=== PATIENT | female | born 1950 | race Caucasian/White ===

== ENCOUNTER 2017-02-07 05:45 | Inpatient (IN) | payer OTHER ==
[2017-02-07] MEDS ORDERED: ceFAZolin 2 GM/DEXTROSE 100 ML IV ONE (05:49)
[2017-02-07] MEDS ORDERED: ACETAMINOPHEN 500 MG TAB PO ONE (05:49)
[2017-02-07] MEDS ORDERED: morphINE SR 15 MG TAB PO ONE (05:49)
[2017-02-07] MEDS ORDERED: GABAPENTIN 300 MG CAP PO ONE (05:49)
[2017-02-07] MEDS ORDERED: LIDOCAINE 1% 2 ML INJ ID PRN (05:55)
[2017-02-07] MEDS ORDERED: LR 1,000 ML IV ONE (05:55)
[2017-02-07] MEDS ORDERED: CHLORHEXIDINE GLUC HIBICLENS 118 ML BTL TP ONE (06:49)
[2017-02-07] MEDS ORDERED: THROMBIN (BOVINE) 20,000 UNIT VIAL TP ONE (06:50)
[2017-02-07] MEDS ORDERED: CITRATE DEXTROSE SOLN 500 ML BAG ONE (06:50)
[2017-02-07] MEDS ORDERED: BUPIVACAINE 0.25% 30 ML SDV ONE (06:50)
[2017-02-07] MEDS ORDERED: BACITRACIN 50,000 UNITS/10 ML SYR IRR ONE (06:51)
--- NOTE | 2017-02-07 07:04 | PDHPUP ---
History & Physical Update H&P update statement: This history and physical update is based on an assessment of the patient which was completed after admission or registration (within 24 hours), but prior to the surgery/procedure. H&P update: H&P reviewed & patient examined, no change in patient's condition since H&P completed (Consents signed and site marked. Plan for L5/S1 ALIF with posterior fusion. All questions answered.)
[2017-02-07] MEDS ORDERED: MIDAZOLAM 2 MG/2 ML VIAL ONE (07:15)
[2017-02-07] MEDS ORDERED: MIDAZOLAM 2 MG/2 ML VIAL IVP ONE ×2 (07:15→11:00)
--- NOTE | 2017-02-07 07:16 | PDANEPAE ---
ANE History of Present Illness spinal stenosis, csf leak ANE Past Medical History - Cardiovascular History Hx Hypertension: Yes Hx Arrhythmias: No Hx Chest Pain: No Hx Coronary Artery / Peripheral Vascular Disease: No Hx CHF / Valvular Disease: No Hx Palpitations: No - Pulmonary History Hx COPD: No Hx Asthma/Reactive Airway Disease: Yes Hx Recent Upper Respiratory Infection: No Hx Oxygen in Use at Home: No Hx Sleep Apnea: No Sleep Apnea Screening Result - Last Documented: Negative - Neurologic History Hx Cerebrovascular Accident: No Hx Seizures: No Hx Dementia: No - Endocrine History Hx Diabetes: No Hypothyroid: Yes Endocrine History Comment: HYPOTHYROID - Renal History Hx Renal Disorders: Yes Renal History Comment: CHRONIC UTI'S LAST 12/2016. ATONIC BLADDER FROM PREV SURG - Liver History Hx Hepatic Disorders: No - Neurological & Psychiatric Hx Hx Neurological and Psychiatric Disorders: No Neurological / Psychiatric History Comment: DEPRESSSION - Cancer History Hx Cancer: Yes Cancer History Comment: SKIN - Congenital Disorder History Hx Congenital Disorders: No - GI History Hx Gastrointestinal Disorders: Yes Gastrointestinal History Comment: IBS. COLITIS - Other Health History Other Health History: DDD - Chronic Pain History Chronic Pain: Yes (LOWER BACK N/T DARRYL LEGS) - Surgical History Prior Surgeries: LUMBAR LAMINECTOMY 03/25/16 AT [facility]. SPINAL FLUID LEAK 04/2017 AND 05/17/2016. HYSTERECTOMNY. MAXI. DARRYL SHLDR SURGERY. CYSTOSCOPY. REMVL UTERINE FIBROID. FUSION. LAMIINECTOMY ANE Review of Systems Review of Systems: - Exercise capacity METS (RN): 4 METS ANE Patient History - Allergies Allergies/Adverse Reactions: No Known Allergies Allergy (Verified 02/05/17 17:01) - Home Medications Home Medications: Amitriptyline HCl 25 mg PO DAILY 01/20/17 [Last Taken 02/07/17 05:00] Amitriptyline HCl 50 mg PO HS 01/20/17 [Last Taken 02/06/17] Aspirin [Aspirin 81mg (*)] 81 mg PO DAILY 01/20/17 [Last Taken 01/31/17] FLUoxetine [Prozac 20 MG (*)] 20 mg PO DAILY 01/20/17 [Last Taken 02/07/17 05:00 ] HYDROcodone/APAP 10/325 [Kerman 10/325 (*)] 1 tab PO Q4-6PRN PRN 01/20/17 [Last Taken 02/07/17 05:00] Herbals/Supplements -Info Only 1 ea PO DAILY 01/20/17 [Last Taken 01/31/17] Hydrochlorothiazide [HCTZ (*)] 25 mg PO DAILY 01/20/17 [Last Taken 02/04/17] Levothyroxine [Synthroid 50 mcg (*)] 50 mcg PO DAILY06 01/20/17 [Last Taken 05:00] Lisinopril [Zestril 10 mg (*)] 30 mg PO DAILY 01/20/17 [Last Taken 02/06/17] Multivitamins [Multivitamin (*)] 1 each PO DAILY 01/20/17 [Last Taken 01/31/17] Tamsulosin HCl [Flomax 0.4 MG (*)] 0.4 mg PO DAILY 01/20/17 [Last Taken 02/06/17 ] Imodium 2 mg (*) PRN 01/23/17 [Last Taken 02/06/17] CHOLESTYRAMINE LIGHT PACKET PRN 01/28/17 [Last Taken 02/06/17] LEVOTHYROXINE SODIUM 75 mcg PO DAILY 02/07/17 [Last Taken 02/07/17 05:00] - NPO status NPO Since - Liquids (Date): 02/06/17 NPO Since - Liquids (Time): 22:00 NPO Since - Solids (Date): 02/06/17 NPO Since - Solids (Time): 19:00 - Smoking Hx Smoking Status: Former smoker ANE Labs/Vital Signs - Vital Signs Blood Pressure: 139/92 Heart Rate: 95 Respiratory Rate: 16 O2 Sat (%): 95 Height: 160.02 cm Weight: 61.235 kg ANE Physical Exam - Airway Neck exam: FROM Mallampati Score: Class 1 Mouth exam: dentures - Pulmonary Pulmonary: no respiratory distress - Cardiovascular Cardiovascular: regular rate and rhythym - ASA Status ASA Status: III ANE Anesthesia Plan Anesthesia Plan: general endotracheal anesthesia Lines/Monitors: arterial line
[2017-02-07] MEDS ORDERED: PROPOFOL 200 MG/20 ML VIAL ONE (07:21)
[2017-02-07] MEDS ORDERED: ROCURONIUM 50 MG/5 ML VIAL ONE ×2 (07:21→08:17)
[2017-02-07] MEDS ORDERED: LIDOCAINE 2% 5 ML SDV ONE (07:21)
[2017-02-07] MEDS ORDERED: fentaNYL 100 MCG/2 ML INJ ONE ×3 (07:21→11:14)
[2017-02-07] MEDS ORDERED: HYDROmorphONE/DILAUDID 2 MG/ML INJ ONE (07:23)
[2017-02-07] MEDS ORDERED: KETAMINE 100 MG/10 ML SYR ONE (07:26)
[2017-02-07] MEDS ORDERED: PHENYLEPHRINE HCL 100 MCG/ML SYR ONE ×3 (08:16→08:36)
[2017-02-07] MEDS ORDERED: DEXAMETHASONE 4 MG/ML VIAL ONE (08:16)
[2017-02-07] MEDS ORDERED: ONDANSETRON 4 MG/2 ML VIAL ONE (08:16)
[2017-02-07] MEDS ORDERED: epHEDrine SULFATE 10 MG/ML SYR ONE (08:16)
[2017-02-07] MEDS ORDERED: NALOXONE HCL 0.4 MG/ML INJ IVP PRN ×2 (08:25→08:26)
[2017-02-07] MEDS ORDERED: HYDROCODONE/APAP 5/325 TAB PO PRN (08:26)
[2017-02-07] MEDS ORDERED: ONDANSETRON 4 MG/2 ML VIAL IVP PRN ×2 (08:26→10:09)
[2017-02-07] MEDS ORDERED: ALBUTEROL 3 ML DEYVIAL IH PRN (08:26)
[2017-02-07] MEDS ORDERED: PROMETHAZINE HCL 25 MG/ML INJ IVP PRN (08:26)
[2017-02-07] MEDS ORDERED: SUGAMMADEX SODIUM 200 MG/2 ML VIAL IVP ONE ×2 (08:38→09:28)
[2017-02-07] MEDS ORDERED: ERTAPENEM 1 GM in NS 100 ML IV ONE (08:45)
--- NOTE | 2017-02-07 09:09 | POSTANESTH ---
Post Anesthetic Evaluation Cardiovascular Status: Normal, Stable Respiratory Status: Normal, Stable Level of Consciousness/Mental Status: Can Participate in Eval Pain Control: Adequate, Prn Tx Ordered Nausea/Vomiting Control: Adequate, Prn Tx Ordered Complications Possibly Related to Anesthesia: None Noted (Case aborted for bowel perforation)
[2017-02-07] MEDS ORDERED: HYDROCODONE/APAP 10/325 TAB PO PRN (10:07)
[2017-02-07] MEDS ORDERED: CHOLESTYRAMINE/SUCROSE 4 GM PKT PO PRN (10:07)
[2017-02-07] MEDS ORDERED: MAGNESIUM HYDROXIDE 30 ML UDCUP PO PRN (10:09)
[2017-02-07] MEDS ORDERED: diphenhydrAMINE 25 MG CAP PO PRN (10:09)
[2017-02-07] MEDS ORDERED: ONDANSETRON DISINTEGRATING 4 MG TAB PO PRN (10:09)
[2017-02-07] MEDS ORDERED: LACTULOSE 20 GM/30 ML UDCUP PO PRN (10:09)
[2017-02-07] MEDS ORDERED: BISACODYL 10 MG SUPP PR PRN (10:09)
[2017-02-07] MEDS ORDERED: POLYETHYLENE GLYCOL 3350 17 GM PKT PO PRN (10:09)
[2017-02-07] MEDS ORDERED: ERTAPENEM 1 GM in NS 100 ML IV SCH ×2 (10:30→15:00)
[2017-02-07] MEDS ORDERED: EPINEPHrine RACEMIC INH 0.5 ML DEYVIAL IH ONE (11:00)
[2017-02-07] MEDS ORDERED: HYDROmorphONE/DILAUDID 1 MG/ML INJ ONE (11:15)
[2017-02-07] MEDS: fentaNYL 100 MCG/2 ML INJ IVP PRN ×2 (11:16→11:38)
[2017-02-07] MEDS: HYDROmorphONE/DILAUDID 1 MG/ML INJ IVP PRN ×3 (11:17→12:22)
--- NOTE | 2017-02-07 12:15 | POSTOPPROG ---
Post Op Note Date of Operation: 02/07/17 Surgeon: Jose Felton Anesthesia: GET(General Endotracheal) Pre-op Diagnosis: Lumbar stenosis Post-op Diagnosis: Lumbar stenosis, Bowel perforation Indication: Lumbar stenosis Procedure: Abdominal exposure for ALIF Inf/Abcess present in the surg proc area at time of surgery?: No EBL: Minimal Complications: Bowel perforation PA Addendum - Addendum .: S: Resting comfortably O: NAD A&Ox3 MAEx4 5/5 and equal in BUE and BLE 66y/o female s/p abdominal exposure for ALIF with bowel perforation and aborting of ALIF Patient to be admitted to the floor with abx (Invanz). Will continue on Augmentin 875mg bid on discharge CLD per gen surgery Activity as tolerated Please notify NS with any change in neuro/motor exam
[2017-02-07] MEDS: METHOCARBAMOL 750 MG TAB PO PRN ×2 (12:55→21:26)
[2017-02-07] MEDS: oxyCODONE IR 5 MG TAB PO PRN ×3 (13:41→21:31)
--- NOTE | 2017-02-07 14:58 | SOAPPROG ---
SOAP Progress Note Assessment/Plan: Assessment: POSTOP DOING WELL, TOLERATING CLEARS, AFEBRILE ABDOMEN SOFT, NONTENDER, WOUND OKAY Plan: ADVANCE DIET WHEN ACTIVE GI FUNCTION 02/07/17 14:56 Objective: Vital Signs Temp Pulse Resp BP Pulse Ox 36.8 C 87 12 138/91 H 99 02/07/17 13:47 02/07/17 13:47 02/07/17 13:47 02/07/17 13:47 02/07/17 13:47 02/06/17 02/07/17 02/08/17 05:59 05:59 05:59 Intake Total 1760 Output Total 415 Balance 1345 ICD10 Worksheet Patient Problems: Problems Problem Status Onset Spinal instability Acute - ICD10 Problem Qualifiers (1) Spinal instability
--- NOTE | 2017-02-07 15:01 | POSTOPPROG ---
Post Op Note Date of Operation: 02/07/17 Surgeon: Troy Lopez River Boat Captain: TIFFANY MARTINI Anesthesiologist: SVETA Anesthesia: GET(General Endotracheal) Pre-op Diagnosis: SPINAL INSTABILITY Post-op Diagnosis: SAME PLUS BOWEL ENTEROTOMY Indication: BACK PAIN Procedure: ANTERIOR SPINE EXPOSURE WITH ENTEROTOMY REPAIR Findings: SMALL BOWEL TOTALLY ADHERENT TO THE ANTERIOR ABDOMINAL WALL WITH NO FREE IN Inf/Abcess present in the surg proc area at time of surgery?: Yes Depth: Organ Space EBL: Minimal Complications: ENTEROTOMY
[2017-02-07] MEDS: NS 1,000 ML IV SCH (15:16)
[2017-02-07] MEDS: ACETAMINOPHEN 500 MG TAB PO SCH ×2 (15:21→21:26)
[2017-02-07] MEDS ORDERED: AMITRIPTYLINE HCL 25 MG TAB PO SCH (21:00)
[2017-02-07] MEDS: FAMOTIDINE 20 MG TAB PO SCH (21:23)
[2017-02-07] MEDS: SENNOSIDES/DOCUSATE SODIUM TAB PO SCH (21:25)
[2017-02-08] MEDS: NS 1,000 ML IV SCH (04:57)
[2017-02-08] MEDS: oxyCODONE IR 5 MG TAB PO PRN ×2 (04:57→10:12)
[2017-02-08 05:13] VITALS: O2SAT 100
[2017-02-08] MEDS ORDERED: LEVOTHYROXINE 75 MCG TAB PO SCH (06:00)
[2017-02-08] MEDS: ACETAMINOPHEN 500 MG TAB PO SCH (06:20)
[2017-02-08 08:00] VITALS: BP 119/72; PULSE 73; RESP 14; TEMP 98.2
[2017-02-08] MEDS: FAMOTIDINE 20 MG TAB PO SCH (08:54)
[2017-02-08] MEDS ORDERED: LISINOPRIL 10 MG TAB PO SCH (09:00)
[2017-02-08] MEDS ORDERED: TAMSULOSIN HCL 0.4 MG CAP PO SCH (09:00)
[2017-02-08] MEDS ORDERED: ENOXAPARIN 40 MG/0.4 ML SYR SC SCH (09:00)
[2017-02-08] MEDS ORDERED: FLUoxetine 20 MG CAP PO SCH (09:00)
[2017-02-08] MEDS ORDERED: HYDROCHLOROTHIAZIDE 25 MG TAB PO SCH (09:00)
[2017-02-08] MEDS ORDERED: AMITRIPTYLINE HCL 25 MG TAB PO SCH (09:00)
[2017-02-08] MEDS ORDERED: ERTAPENEM 1 GM in NS 100 ML IV SCH (09:00)
[2017-02-08] MEDS ORDERED: MULTIVITAMINS 1 EACH TAB PO SCH (09:00)
[2017-02-08] MEDS: SENNOSIDES/DOCUSATE SODIUM TAB PO SCH (10:04)
--- NOTE | 2017-02-08 12:17 | ASMTCMCOM ---
CM Note CM Note Notes: Pt. is a 66-year-old woman admitted with low back pain and weakness. Pt. is d/cing independently today. Date Signed: 02/08/2017 12:17 PM Electronically Signed By:Mary Jane Tapia LCSW
--- NOTE | 2017-02-08 12:58 | NEUSURGPN ---
Assessment/Plan: S: Patiet doing well, passing gas, had BM. Diet advancing fine. Has some incisional pain but otherwise doing fine. O: NAD A&Ox3 MAEx4 5/5 and equal in BUE and BLE 66y/o female s/p abdominal exposure for ALIF with bowel perforation and aborting of ALIF Patient to be discharged today and will plan for repeat ALIF in next 2-3 weeks Will continue on Augmentin 875mg bid on discharge for 10 days Tolerating solid food Activity as tolerated Please notify NS with any change in neuro/motor exam - Physician Discussed Patient with : Jose Francisco Neurosurgery Physical Exam - Vitals, I&O, Labs I and O 02/07/17 02/08/17 02/09/17 05:59 05:59 05:59 Intake Total 2850 1091 Output Total 3115 Balance -265 1091 Weight 61.235 kg Intake: Oral (ml) 1150 IV Intake (ml) 1700 1091 Output: Urine (ml) 3100 Bedpan 400 Toilet 2700 Estimated Blood Loss (ml) 15 Other: Intake Quantity Yes Sufficient Number of Voids Incontinence 1 Toilet 1 Number of Stools Toilet 1 Vital Signs Temp Pulse Resp BP Pulse Ox 36.8 C 73 14 119/72 100 02/08/17 07:56 02/08/17 07:56 02/08/17 07:56 02/08/17 08:54 02/08/17 07:56 ICD10 Worksheet Patient Problems: Problems Problem Status Onset Spinal instability Acute
--- NOTE | 2017-02-08 15:04 | ASDISCHSUM ---
Discharge Information Plan Status:Home with No Needs Medically Cleared to Leave: Discharge Date:02/08/2017 10:47 AM CM D/C Disposition:Home, Routine, Self-Care ADT D/C Disposition:Home, Routine, Self-Care Projected Discharge Date:02/08/2017 10:47 AM Transportation at D/C: Discharge Delay Reason: Follow-Up Date:02/08/2017 10:47 AM Discharge Slot: Final Diagnosis: Placement Information Patient Contact Information Contact Name:CHRISTI Relationship: Address:[address] [place] [address] Home Phone: City:[place] Alternate Phone: [facility]/Zip Code:[place] [address] Email: Financial Information Financial Class:[facility] Primary Plan Desc:SHIELA O HMO OPEN ACC LOCAL Primary Plan Number:[id number] Secondary Plan Desc: Secondary Plan Number: Assessment Information [facility] CM Progress Note CM Note CM Note Notes: Pt. is a 66-year-old woman admitted with low back pain and weakness. Pt. is d/cing independently today. Date Signed: 02/08/2017 12:17 PM Electronically Signed By:Mary Jane Tapia LCSW Intervention Information
--- NOTE | 2017-02-12 04:22 | GOP ---
[f rep st] OPERATIVE REPORT DATE OF OPERATION: 02/07/2017 SURGEON: Troy Lopez MD PREOPERATIVE DIAGNOSIS: Spinal instability. POSTOPERATIVE DIAGNOSIS: Spinal instability. PROCEDURE PERFORMED: Laparotomy with repair of enterotomy. FINDINGS: Patient was found to have small bowel adherent to her previous midline abdominal incision, causing an inadvertent enterotomy which necessitated the cancellation of her spine surgery. DESCRIPTION OF PROCEDURE: Patient was taken to the operating room where she received satisfactory ge neral endotracheal anesthesia by Dr. Richter. She was placed in supine position, and prepped and drap ed in usual sterile fashion. A low Pfannenstiel-type incision was made. This was placed well above her previous hysterectomy incision, which was in the suprapubic area, in order to avoid adhesions. D issection was carried down through subcutaneous tissue. Superficial fascia was incised. The fascia was elevated up away from the rectus muscles, both above and below this incision. A midline dissecti on was then initiated through the rectus muscles of the abdominal midline. However, on the very firs t cut between the rectus muscles, small loop of bowel was entered. This was immediately closed with a running 3-0 Vicryl suture. The bowel was attempted to be dissected away from the fascia. It was q uite adherent and was not able to easily mobilize this loop of bowel from its adhesions and contain i t at that side. The enterotomy was freed up as much as possible, and then closed with a running 3-0 Vicryl suture. It was then imbricated with interrupted 3-0 Vicryl sutures, maintaining good patency to the bowel. Wound was copiously irrigated. The strap muscles were then reapproximated over this anastomosis with interrupted 2-0 Vicryl sutures. The wound was infiltrated with 0.5% Marcaine. The procedure was es sentially terminated. The fascia was closed with a running #1 PDS suture, subcu with 3-0 Vicryl, and the skin with a 4-0 Monoderm Quill suture. She tolerated the procedure quite well. The wound was infiltrated with 0.5% Marcaine. Taken to the recovery room in good condition with termination of the attempted anterior spine exposure. /[id number]/MODL
== END 2017-02-08 10:47 | disposition home or self-care (01) | DRG 909 ==
LOC: F3N 05:45 → F3E 12:28
PROVIDERS: ADMIT Neurological Surgery; ATTEND Neurological Surgery
PROC: 0DQ80ZZ Repair Small Intestine, Open Approach (ICD-10-PCS; principal; 2017-02-07 07:15)
DX: K91.72 Accidental puncture and laceration of a digestive system organ or structure during other procedure (principal); M54.17 Radiculopathy, lumbosacral region; M48.07 Spinal stenosis, lumbosacral region; K66.0 Peritoneal adhesions (postprocedural) (postinfection); Z98.1 Arthrodesis status; I10 Essential (primary) hypertension; E03.9 Hypothyroidism, unspecified; K58.9 Irritable bowel syndrome, unspecified
CPT/HCPCS: J0171; J0690; J1100; J1170; J1335; J1650; J2250; J2370; J2405; J2704; J3010; J7060

== ENCOUNTER 2017-03-27 09:00 | Inpatient (IN) | payer OTHER ==
[2017-03-28] MEDS ORDERED: BUPIVACAINE 0.5% 30 ML SDV ONE (08:38)
[2017-03-28] MEDS ORDERED: BACITRACIN 50,000 UNITS/10 ML SYR IRR ONE ×2 (08:38→08:51)
[2017-03-28] MEDS ORDERED: CHLORHEXIDINE GLUC HIBICLENS 118 ML BTL TP ONE (08:38)
[2017-03-28] MEDS ORDERED: CITRATE DEXTROSE SOLN 500 ML BAG ONE (08:38)
[2017-03-28] MEDS ORDERED: THROMBIN (BOVINE) 20,000 UNIT VIAL TP ONE ×2 (08:38→08:50)
[2017-03-28] MEDS ORDERED: GABAPENTIN 300 MG CAP PO ONE (08:40)
[2017-03-28] MEDS ORDERED: morphINE SR 15 MG TAB PO ONE (08:40)
[2017-03-28] MEDS ORDERED: ceFAZolin 2 GM/SWFI 2 GM/20 ML SYR IVP ONE (08:40)
[2017-03-28] MEDS ORDERED: ACETAMINOPHEN 500 MG TAB PO ONE (08:40)
[2017-03-28] MEDS ORDERED: LIDOCAINE 1% 2 ML INJ ID PRN (08:44)
[2017-03-28] MEDS ORDERED: LR 1,000 ML IV ONE (08:44)
[2017-03-28] MEDS ORDERED: BUPIVACAINE 0.25% 30 ML SDV ONE ×2 (08:50→13:30)
--- NOTE | 2017-03-28 09:43 | PDHPUP ---
History & Physical Update H&P update statement: This history and physical update is based on an assessment of the patient which was completed after admission or registration (within 24 hours), but prior to the surgery/procedure. H&P update: H&P reviewed & patient examined, no change in patient's condition since H&P completed (Consent signed and site marked. All questions answered.)
[2017-03-28] MEDS ORDERED: MIDAZOLAM 2 MG/2 ML VIAL IVP ONE (10:21)
--- NOTE | 2017-03-28 10:24 | PDANEPAE ---
ANE History of Present Illness L5/S1 ALIF and post fusion ANE Past Medical History - Cardiovascular History Hx Hypertension: Yes Hx Arrhythmias: No Hx Chest Pain: No Hx Coronary Artery / Peripheral Vascular Disease: No Hx CHF / Valvular Disease: No Hx Palpitations: No - Pulmonary History Hx COPD: No Hx Asthma/Reactive Airway Disease: Yes Hx Recent Upper Respiratory Infection: No Hx Oxygen in Use at Home: No Hx Sleep Apnea: No Sleep Apnea Screening Result - Last Documented: Negative - Neurologic History Hx Cerebrovascular Accident: No Hx Seizures: No Hx Dementia: No - Endocrine History Hx Diabetes: No Endocrine History Comment: HYPOTHYROID - Renal History Hx Renal Disorders: Yes Renal History Comment: CHRONIC UTI'S LAST 12/2016. ATONIC BLADDER FROM PREV SURG - Liver History Hx Hepatic Disorders: No - Neurological & Psychiatric Hx Hx Neurological and Psychiatric Disorders: Yes Neurological / Psychiatric History Comment: DEPRESSSION - Cancer History Hx Cancer: Yes Cancer History Comment: SKIN - Congenital Disorder History Hx Congenital Disorders: No - GI History Hx Gastrointestinal Disorders: Yes Gastrointestinal History Comment: IBS. COLITIS - Other Health History Other Health History: none - Chronic Pain History Chronic Pain: Yes (LOWER BACK N/T DARRYL LEGS) - Surgical History Prior Surgeries: LUMBAR LAMINECTOMY 03/25/16 AT [facility]. SPINAL FLUID LEAK 04/26 AND 05/17/2016. HYSTERECTOMY. MAXI. DARRYL SHLDR SURGERY. CYSTOSCOPY. REMVL UTERINE FIBROID. FUSION. LAMIINECTOMY ANE Review of Systems Review of Systems: - Exercise capacity METS (RN): 4 METS ANE Patient History - Allergies Allergies/Adverse Reactions: No Known Allergies Allergy (Verified 02/05/17 17:01) - Home Medications Home medications: home medication list seen and reviewed Home Medications: Aspirin [Aspirin 81mg (*)] 81 mg PO DAILY 01/20/17 [Last Taken 1 Week Ago ~03/21] FLUoxetine [Prozac 20 MG (*)] 20 mg PO DAILY 01/20/17 [Last Taken 03/27/17] Herbals/Supplements -Info Only 1 ea PO DAILY 01/20/17 [Last Taken 1 Week Ago ~] Hydrochlorothiazide [HCTZ (*)] 25 mg PO DAILY 01/20/17 [Last Taken 03/26/17] Lisinopril [Zestril 10 mg (*)] 30 mg PO DAILY 01/20/17 [Last Taken 03/28/17] Multivitamins [Multivitamin (*)] 1 each PO DAILY 01/20/17 [Last Taken 1 Week Ago ~03/21/17] Tamsulosin HCl [Flomax 0.4 MG (*)] 0.4 mg PO DAILY 01/20/17 [Last Taken 03/27/17 ] Cholestyramine (with Sugar) [Cholestyramine Packet] 4 gm PO DAILY PRN 02/07/17 [ Last Taken 03/27/17] Levothyroxine [Synthroid 75 mcg (*)] 75 mcg PO DAILY06 02/07/17 [Last Taken ] Loperamide HCl [Imodium 2 mg (*)] 2 mg PO Q3 PRN 02/07/17 [Last Taken 03/28/17] Topiramate [Topamax 25MG (*)] 50 mg PO BID 02/24/17 [Last Taken 03/28/17] - NPO status NPO Status: no food or drink >8 hours NPO Since - Liquids (Date): 03/27/17 NPO Since - Liquids (Time): 22:00 NPO Since - Solids (Date): 03/27/17 NPO Since - Solids (Time): 17:00 - Anes Hx Anes Hx: no prior problems - Smoking Hx Smoking Status: Former smoker - Alcohol Use Alcohol Use: Rarely - Family Anes Hx Family Hx Anesthesia Complications: none ANE Labs/Vital Signs - Labs - CBC WBC: reviewed and okay - Vital Signs Blood Pressure: 163/99 Heart Rate: 80 Respiratory Rate: 16 O2 Sat (%): 99 Height: 160.02 cm Weight: 61.689 kg ANE Physical Exam - Airway Mallampati Score: Class 1 Mouth exam: normal dental/mouth exam - Pulmonary Pulmonary: no respiratory distress - Cardiovascular Cardiovascular: regular rate and rhythym - ASA Status ASA Status: II ANE Anesthesia Plan Anesthesia Plan: general endotracheal anesthesia (possible 2nd IV. R/B/A explained and agrees to proceed.) Lines/Monitors: arterial line (+/- )
[2017-03-28] MEDS ORDERED: fentaNYL 100 MCG/2 ML INJ ONE ×3 (10:43→16:35)
[2017-03-28] MEDS ORDERED: PROPOFOL/EMULSION 500 MG/50 ML BOTTLE IV ONE (10:43)
[2017-03-28] MEDS ORDERED: REMIFENTANIL HCL 1 MG VIAL ONE (10:43)
[2017-03-28] MEDS ORDERED: LIDOCAINE HCL 160 MG/4 ML LTA KIT TP ONE (10:47)
[2017-03-28] MEDS ORDERED: ONDANSETRON 4 MG/2 ML VIAL ONE (10:47)
[2017-03-28] MEDS ORDERED: DEXAMETHASONE 4 MG/ML VIAL ONE ×2 (10:47)
[2017-03-28] MEDS ORDERED: LIDOCAINE 2% 100 MG/5 ML SYR ONE (10:47)
[2017-03-28] MEDS ORDERED: epHEDrine SULFATE 10 MG/ML SYR ONE ×4 (11:20→11:28)
[2017-03-28] MEDS ORDERED: PROPOFOL 200 MG/20 ML VIAL ONE (13:52)
--- NOTE | 2017-03-28 14:25 | POSTOPPROG ---
Post Op Note Date of Operation: 03/28/17 Surgeon: Troy Lopez Cigarette Packer: Jey Burkett Anesthesiologist: Dr Abraham Anesthesia: GET(General Endotracheal) Pre-op Diagnosis: need for spinal exposure Post-op Diagnosis: same Indication: same Procedure: retroperitoneal approach anterior exposure, for L5-S1, for Dr Oates Inf/Danieless present in the surg proc area at time of surgery?: No Depth: Organ Space EBL: 50-100
[2017-03-28] MEDS ORDERED: ACETAMINOPHEN 500 MG TAB PO PRN (15:08)
[2017-03-28] MEDS ORDERED: METOCLOPRAMIDE 10 MG/2 ML VIAL IVP PRN (15:08)
[2017-03-28] MEDS ORDERED: NALOXONE HCL 0.4 MG/ML INJ IVP PRN (15:08)
[2017-03-28] MEDS ORDERED: MEPERIDINE 25 MG/ML SYR IVP PRN (15:08)
[2017-03-28] MEDS ORDERED: HYDROCODONE/APAP 5/325 TAB PO PRN (15:08)
[2017-03-28] MEDS ORDERED: DEXAMETHASONE 4 MG/ML VIAL IVP PRN (15:08)
[2017-03-28] MEDS ORDERED: LR 500 ML IV PRN (15:08)
[2017-03-28] MEDS ORDERED: ALBUTEROL 3 ML DEYVIAL IH PRN (15:08)
[2017-03-28] MEDS ORDERED: OXYCODONE/APAP 5/325 TAB PO PRN (15:08)
[2017-03-28] MEDS ORDERED: PROMETHAZINE HCL 25 MG/ML INJ IVP PRN ×2 (15:08→15:21)
[2017-03-28] MEDS ORDERED: LABETALOL HCL 50 MG/10 ML SYR IVP PRN (15:08)
[2017-03-28] MEDS ORDERED: ONDANSETRON 4 MG/2 ML VIAL IVP PRN ×2 (15:08→15:16)
[2017-03-28] MEDS ORDERED: CHOLESTYRAMINE/SUCROSE 4 GM PKT PO PRN (15:15)
[2017-03-28] MEDS ORDERED: MAGNESIUM HYDROXIDE 30 ML UDCUP PO PRN (15:16)
[2017-03-28] MEDS ORDERED: diphenhydrAMINE 25 MG CAP PO PRN (15:16)
[2017-03-28] MEDS ORDERED: BISACODYL 10 MG SUPP PR PRN (15:16)
[2017-03-28] MEDS ORDERED: POLYETHYLENE GLYCOL 3350 17 GM PKT PO PRN (15:16)
[2017-03-28] MEDS ORDERED: LACTULOSE 20 GM/30 ML UDCUP PO PRN (15:16)
[2017-03-28] MEDS ORDERED: ONDANSETRON DISINTEGRATING 4 MG TAB PO PRN (15:16)
[2017-03-28] MEDS: fentaNYL 100 MCG/2 ML INJ IVP PRN ×3 (15:27→16:40)
[2017-03-28] MEDS ORDERED: NS W/ 20 KCl/L 1,000 ML IV SCH (15:30)
[2017-03-28] MEDS ORDERED: DIAZEPAM 10 MG/2 ML SYR ONE (15:32)
[2017-03-28] MEDS: DIAZEPAM 10 MG/2 ML SYR IVP PRN ×2 (15:34→16:36)
--- NOTE | 2017-03-28 15:35 | POSTOPPROG ---
Post Op Note Date of Operation: 03/28/17 Surgeon: Jose Felton Dinkey Engine Firer/Fireman: Ernesto Puckett PA-C Anesthesiologist: Jarad Anesthesia: GET(General Endotracheal) Pre-op Diagnosis: lumbar degenerative disc disease Post-op Diagnosis: same Indication: nerve pain, radiculopathy Procedure: L5-S1 ALIF, L5-S1 percutaneous posterior fusion Findings: Please see dictation Inf/Abcess present in the surg proc area at time of surgery?: No Depth: Organ Space EBL: 100-500 Complications: none Specimen(s): none PA Addendum - Addendum .: S: Pt awake in PACU, c/o back pain O: AAOx3 NAD VSS MAEx4 Motor 5/5 BUE/BLE +LT Incisions dressed cdi A: 66 yo F s/p L5-S1 ALIF, L5-S1 percutaneous posterior fusion P: PT/OT Diet per gen surg TEDs, SCDs, lovenox POD#1 Brace when OOB Post op xrays pending Call NS with any issues D/w Dr Felton
[2017-03-28] MEDS: oxyCODONE IR 5 MG TAB PO PRN ×2 (17:08→21:13)
--- NOTE | 2017-03-28 17:38 | GOP ---
[f rep st] OPERATIVE REPORT DATE OF OPERATION: 03/28/2017 SURGEON: Jose Felton MD CO-SURGEON: Troy Lopez MD TELEMARKETING FUNDRAISER: GIOVANNY Gray ANESTHESIA: General. COMPLICATIONS: None. PREOPERATIVE DIAGNOSIS: 1. L5-S1 spondylosis with instability with history of prior laminectomy and infection and cerebrospinal fluid leak. 2. Low back pain. 3. Lower extremity radiculopathy. POSTOPERATIVE DIAGNOSIS: 1. L5-S1 spondylosis with instability with history of prior laminectomy and infection, cerebrospinal fluid leak. 2. Low back pain. 3. Lower extremity radiculopathy. PROCEDURE PERFORMED: Please note: This is stage 1 of a 2 planned stage surgical procedure. Stage 2 will be dictated in a separate op report. Stage 1: 1. Anterior arthrodesis with approach to L5-S1. 2. L5-S1 diskectomy and interbody fusion using a 16 mm Perimeter PEEK cage filled with morselized allograft. 3. Anterior lumbar fusion L5 and S1 with a large Medtronic Pivox plate with a 25 mm screw into L5 and S1. 4. Use of intraoperative fluoroscopy, less than 1-hour physician time. 5. Use of neuromonitoring. FINDINGS: per imaging ESTIMATED BLOOD LOSS: 125 mL. INDICATIONS: Patient is a 66-year-old woman who has undergone a prior decompression at L5-S1 which was complicated by an infection and CSF leak. She opted for stabilization and decompression of her nerve roots. She opted to proceed forth with surgery as described above after failing nonoperative intervention. DESCRIPTION OF PROCEDURE: Patient was brought to the operating theater and underwent general endotracheal anesthesia without complications. She had Venodynes, NICCI hose, and the appropriate lines placed by Anesthesia. She was maintained supine on the operating table and all bony prominences were inspected and padded. The arms were located at the sides and then extended. Dr. Lopez and his team then marked out on her abdomen an anterior incision that gave us the best approach to the L5-S1 level. This was marked and prepped and draped in the usual sterile surgical fashion. A time-out was completed per protocol and the patient received antibiotics within [address] Lopez and his team will dictate in a separate op report the anterior lumbar approach to the L5-S1 level. Once this was completed, our team was called into the field. We confirmed our level again using lateral fluoroscopy. We completed an L5-S1 diskectomy and sequentially distracted the L5-S1 disk space. We prepared the cartilaginous endplates and measured the interbody space. We then placed a 16 mm Perimeter PEEK cage filled with morcellized allograft into the L5-S1 disk space. We drilled down the anterior osteophytes and secured a large Medtronic Pivox plate with a 25 mm screw in L5 and a 25 mm screw in S1. AP and lateral x-rays demonstrated good placement of the hardware. Dr. Lopez and his team will then dictate in a separate op report the anterior abdominal closure. At this point, there were no complications and no noted changes on neuromonitoring throughout the procedure. /[id number]/MODL MTDD
[2017-03-28] MEDS: ceFAZolin 2 GM/DEXTROSE 100 ML IV SCH (18:03)
--- NOTE | 2017-03-28 18:23 | GOP ---
[f rep st] OPERATIVE REPORT DATE OF OPERATION: 03/28/2017 SURGEON: Jose Felton MD AGRICULTURIST: Melanie Puckett, GIOVANNY ANESTHESIA: General. PREOPERATIVE DIAGNOSIS: 1. L5-S1 lumbar laminectomy with instability. 2. Low back pain. 3. Radiculopathy. 4. Refractory to nonoperative intervention. POSTOPERATIVE DIAGNOSIS: 1. L5-S1 lumbar laminectomy with instability. 2. Low back pain. 3. Radiculopathy. 4. Refractory to nonoperative intervention. PROCEDURE PERFORMED: Please note, this is stage 2 of a planned 2-stage surgical procedure. Stage 1 was an L5-S1 ALIF which was completed earlier in the day and is dictated in a separate op report. Stage II: 1. Percutaneous pedicle screw placement at L5 and S1 from the Medtronic Voyager system. 2. Use of intraoperative 3D Stealth navigation. 3. Use of intraoperative fluoroscopy, less than 1-hour physician time. 4. Use of neuromonitoring. FINDINGS: per imaging SPECIMENS: None. ESTIMATED BLOOD LOSS: 10 mL. INDICATIONS: Patient is a 66-year-old woman, who unfortunately suffers from long-standing history of low back pain. She has had prior lumbar surgery complicated by an infection and spinal fluid leak. She presents now for stabilization of her lumbar spine. DESCRIPTION OF PROCEDURE: Patient was still asleep from the completion of stage 1 of her procedure. She was flipped prone onto the Alexis table and all bony prominences inspected and padded. The lower lumbar region was identified and prepped and draped in the usual sterile surgical fashion. A time-out was completed per protocol again and the patient was not re-dosed for antibiotics because there had not been time, given the duration of her surgery. At this point, a small midline incision was made after being infiltrated with Marcaine with epinephrine over the L3-L4 spinous processes. The midline 3D Stealth clamp was attached to the spinous process and we completed a 3D Stealth navigation spin. Using 3D Stealth navigation, we placed the menhaden vessel pilot holes for the pedicle screws on the left side at L5 and S1. It was noted the navigation was off for the S1 screw placement. We therefore re-spun the 3D Navigation spin and placed her left-sided S1 screw. These were both 6.5 x 40 mm screw on the left at L5 and a 6.5 x 50 mm screw on the left at S1 from the Medtronic Voyager system. We then moved to the right side where we placed the right- sided L5 pedicle screw which was a 6.5 x 50 mm screw. We then placed a right- sided S1 pedicle screw which was a 6.5 x 50 mm screw. We completed a 3D Stealth navigation spin which demonstrated that the right-sided S1 screw was medialized into the canal. I removed the screw and verified and exposed it. There was no evidence of any CSF leak and no changes on Neuromonitoring. We then completed another 3D Stealth navigation spin and repositioned the right- sided S1 screw which was again a 6.5 x 50 mm screw. Another 3D Stealth navigation spin demonstrated excellent placement of the hardware. At this point, we took down the soft tissues between the towers of the 2 screws at L5-S1 bilaterally. We placed a randall between the L5-S1 screws bilaterally and secured them down with cap screws, which were then tightened per the cube machine tender's setting. AP and lateral x-rays demonstrated good placement of the hardware. There were no changes on neuromonitoring throughout the procedure. All the wounds were irrigated copiously with bacitracin irrigation and closed in multiple layers using Vicryl sutures in the deep layers and Dermabond for the skin. The patient's wounds were dressed sterilely. She was flipped supine onto the transfer cart and was taken to the recovery room, and was noted to be neurologically stable with no leg complaints on my examination. COMPLICATIONS: None. /[id number]/MODL MTDD
[2017-03-28] MEDS: SENNOSIDES/DOCUSATE SODIUM TAB PO SCH (21:12)
[2017-03-28] MEDS: HYDROmorphone HCL/NS/PF 0.4 MG/2 ML SYR IVP PRN (21:12)
[2017-03-28] MEDS: TOPIRAMATE 100 MG TAB PO SCH (21:13)
[2017-03-28] MEDS: FAMOTIDINE 20 MG TAB PO SCH (21:13)
[2017-03-28] MEDS: ACETAMINOPHEN 500 MG TAB PO SCH (21:13)
[2017-03-28] MEDS: METHOCARBAMOL 750 MG TAB PO PRN (21:13)
[2017-03-29] MEDS: DIAZEPAM 10 MG/2 ML SYR IVP PRN (00:11)
[2017-03-29] MEDS ORDERED: NS BOLUS 500 ML (Wide open) IV ONE (01:00)
[2017-03-29] MEDS ORDERED: NS 1,000 ML IV SCH (01:00)
[2017-03-29] MEDS: ceFAZolin 2 GM/DEXTROSE 100 ML IV SCH (02:55)
[2017-03-29] MEDS: oxyCODONE IR 5 MG TAB PO PRN ×5 (03:04→23:15)
[2017-03-29 04:55] LABS: % IMMATURE GRANULYOCYTES 0.5 % (0.0-1.1); ABSOLUTE IMMATURE GRANULOCYTES 0.03 10^3/uL (0.00-0.10); ADD DIFF? NO; ADD MORPH? NO; ADD SCAN? NO; ATYPICAL LYMPHOCYTE FLAG 0 (0-99); FRAGMENT RBC FLAG 0 (0-99); HEMATOCRIT 26.6 % (38.0-47.0); HEMOGLOBIN 9.6 g/dL (12.6-16.3); LEFT SHIFT FLG 0 (0-99); LIPEMIA HEMOLYSIS FLAG 90 (0-99); MEAN CELL HEMOGLOBIN 32.2 pg (27.9-34.1); MEAN CELL HEMOGLOBIN CONCENTR. 36.1 g/dL (32.4-36.7); MEAN CELL VOLUME 89.3 fL (81.5-99.8); PLATELET CLUMPS FLAG 0 (0-99); PLATELET COUNT 149 10^3/uL (150-400); RED BLOOD CELL COUNT 2.98 10^6/uL (4.18-5.33); RED CELL DISTRIBUTION WIDTH 13.5 % (11.5-15.2)
[2017-03-29 05:09] LABS: ANION GAP 9 mEq/L (8-16); CALCIUM 8.4 mg/dL (8.5-10.4); CARBON DIOXIDE 22 mEq/l (22-31); CHLORIDE 111 mEq/L (97-110); CREATININE 0.7 mg/dL (0.6-1.0); GLOMERULAR FILTRATION RATE > 60; GLUCOSE 94 mg/dL (70-100); POTASSIUM 3.6 mEq/L (3.5-5.2); SODIUM 142 mEq/L (134-144)
[2017-03-29] MEDS: METHOCARBAMOL 750 MG TAB PO PRN ×3 (05:52→20:05)
[2017-03-29] MEDS: LEVOTHYROXINE 75 MCG TAB PO SCH (05:52)
[2017-03-29] MEDS: ACETAMINOPHEN 500 MG TAB PO SCH ×3 (05:52→23:14)
--- NOTE | 2017-03-29 06:17 | POSTANESTH ---
Post Anesthetic Evaluation Cardiovascular Status: Normal, Stable Respiratory Status: Normal, Stable Level of Consciousness/Mental Status: Can Participate in Eval Pain Control: Adequate, Prn Tx Ordered Nausea/Vomiting Control: Adequate, Prn Tx Ordered Complications Possibly Related to Anesthesia: None Noted
[2017-03-29] MEDS: HYDROmorphone HCL/NS/PF 0.4 MG/2 ML SYR IVP PRN ×3 (06:19→15:59)
[2017-03-29] MEDS: TAMSULOSIN HCL 0.4 MG CAP PO SCH (07:56)
[2017-03-29] MEDS: FAMOTIDINE 20 MG TAB PO SCH ×2 (07:56→20:07)
[2017-03-29] MEDS: HYDROCHLOROTHIAZIDE 25 MG TAB PO SCH (07:57)
[2017-03-29] MEDS: FLUoxetine 20 MG CAP PO SCH (07:57)
[2017-03-29] MEDS: morphINE SR 15 MG TAB PO SCH ×2 (07:57→20:06)
[2017-03-29] MEDS: MULTIVITAMINS 1 EACH TAB PO SCH (07:57)
[2017-03-29] MEDS: TOPIRAMATE 100 MG TAB PO SCH ×2 (07:57→20:06)
[2017-03-29] MEDS: LISINOPRIL 10 MG TAB PO SCH (08:01)
[2017-03-29] MEDS: SENNOSIDES/DOCUSATE SODIUM TAB PO SCH ×2 (08:05→21:30)
[2017-03-29] MEDS ORDERED: LOPERAMIDE HCL 2 MG CAP PO PRN (10:41)
--- NOTE | 2017-03-29 10:41 | SOAPPROG ---
SOAP Progress Note Assessment/Plan: Assessment: 66 yo F POD #1 L5/S1 ALIF and posterior fusion Plan: neuro: stable and doing well overall PT/OT scd/eulogio/lovenox for DVT prophylaxis IBS: ok to restart home meds dc karla today x-rays today will add MScontin for pain control please call with neuro changes discussed with Dr Limon 03/29/17 10:38 Subjective: + back pain, no leg pain. Some numbness in foot Objective: Vital Signs Temp Pulse Resp BP Pulse Ox 37.1 C 74 18 116/64 100 03/29/17 07:51 03/29/17 07:51 03/29/17 07:51 03/29/17 07:57 03/29/17 07:51 Laboratory Results 03/29/17 04:41 03/29/17 04:41 03/28/17 03/29/17 03/30/17 05:59 05:59 05:59 Intake Total 4010 500 Output Total 3800 1050 Balance 210 -550 AAOx4, +FC PERRL, EOMI, no facial droop DAVID x4 + light touch C/D/I ICD10 Worksheet Patient Problems: Problems Problem Status Onset Spinal instability Acute
--- NOTE | 2017-03-29 11:41 | SOAPPROG ---
SOAP Progress Note Assessment/Plan: Assessment/Plan: 66yo F s/p ant exposure for spinal fusion - patient has great bowel sounds and is having bowel function - diet already advanced per NSG team, nothing to add 03/29/17 11:40 Subjective: having bowel function Objective: Vital Signs Temp Pulse Resp BP Pulse Ox 37.1 C 74 18 107/64 100 03/29/17 07:51 03/29/17 07:51 03/29/17 07:51 03/29/17 08:01 03/29/17 07:51 Laboratory Results 03/29/17 04:41 03/29/17 04:41 03/28/17 03/29/17 03/30/17 05:59 05:59 05:59 Intake Total 4010 500 Output Total 3800 1350 Balance 210 -850 ICD10 Worksheet Patient Problems: Problems Problem Status Onset Spinal instability Acute
--- NOTE | 2017-03-29 14:54 | ASMTCMCOM ---
CM Note CM Note Notes: Pt admitted for tlif and is progressing well. Awaiting PT/OT evals. C/M to follow Date Signed: 03/29/2017 02:53 PM Electronically Signed By:Allison Taylor LCSW
[2017-03-29] MEDS: DIAZEPAM 5 MG TAB PO PRN ×2 (15:59→23:14)
[2017-03-29] MEDS: ENOXAPARIN 40 MG/0.4 ML SYR SC SCH (15:59)
--- NOTE | 2017-03-29 23:44 | GOP ---
[f rep st] OPERATIVE REPORT DATE OF OPERATION: 03/28/2017 SURGEON: Troy Lopez MD RESTAURANT ATTENDANT: Jey Burkett P.A.-C. ANESTHESIOLOGIST: Dr. Abraham. PREOPERATIVE DIAGNOSIS: Spinal instability. POSTOPERATIVE DIAGNOSIS: Spinal instability. PROCEDURE PERFORMED: Anterior spine exposure retroperitoneal approach for L5- S1. FINDINGS: Safe access the L5-S1 DESCRIPTION OF PROCEDURE: The patient was taken to the operating room where she received satisfactory general anesthesia and was placed in the supine position. She was prepped and draped in the usual sterile fashion. Anesthesia was Dr. Abraham for this case. An oblique left lower quadrant incision was made and carried down through the subcutaneous tissue. Hemostasis was obtained. The rectus sheath was incised. The fascia was elevated away from the rectus muscle, which was mobilized and retracted laterally. The posterior sheath was then divided and the peritoneum and retroperitoneal tissues were mobilized and dissected up off the vessels directed superiorly and laterally. Exposure was established with the Omni retractor. Presacral vessels were ligated and divided, and exposure of the L5- S1 disc space was confirmed with C-arm. At that point to L5-S1 fusion was performed by which will be dictated separately. After that in the abdomen was irrigated hemostasis was assured and the wound was closed in layers with a running 0 Vicryl suture for the posterior sheath running 1. PDS suture for the anterior sheath, through Vicryl for the subcu, and 3 0 Monoderm Quill suture for the skin. She tolerated procedure well and blood loss was less than 150 cc /[id number]/MODL MTDD
[2017-03-30] MEDS: HYDROmorphone HCL/NS/PF 0.4 MG/2 ML SYR IVP PRN ×2 (01:21→11:39)
[2017-03-30] MEDS: ACETAMINOPHEN 500 MG TAB PO SCH (05:25)
[2017-03-30] MEDS: oxyCODONE IR 5 MG TAB PO PRN ×2 (05:26→09:27)
[2017-03-30] MEDS: DIAZEPAM 5 MG TAB PO PRN ×3 (05:27→19:12)
[2017-03-30] MEDS: LEVOTHYROXINE 75 MCG TAB PO SCH (05:27)
[2017-03-30 08:25] VITALS: RESP 16
--- NOTE | 2017-03-30 09:00 | SOAPPROG ---
SOAP Progress Note Assessment/Plan: Assessment: 66 yo F POD #2 L5/S1 ALIF and posterior fusion Plan: neuro: stable and doing well overall PT/OT scd/eulogio/lovenox for DVT prophylaxis IBS: ok to restart home meds, better today acosta removed x-rays today pain improved with MScontine please call with neuro changes discussed with Dr Limon 03/29/17 10:38 03/30/17 08:59 Subjective: continued back and abdominal pain, no leg pain, no weakness. still with numbness in left foot Objective: Vital Signs Temp Pulse Resp BP Pulse Ox 36.8 C 66 16 113/64 95 03/30/17 08:24 03/30/17 08:24 03/30/17 08:24 03/30/17 08:24 03/30/17 08:24 Laboratory Results 03/29/17 04:41 03/29/17 04:41 03/29/17 03/30/17 03/31/17 05:59 05:59 05:59 Intake Total 4010 1350 Output Total 3800 1350 Balance 210 0 AAOX4, +FC PERRL, EOMI, no facial droop 5/5 + light touch C/D/I x 2 ICD10 Worksheet Patient Problems: Problems Problem Status Onset Spinal instability Acute
[2017-03-30] MEDS: ENOXAPARIN 40 MG/0.4 ML SYR SC SCH (09:25)
[2017-03-30] MEDS: TAMSULOSIN HCL 0.4 MG CAP PO SCH (09:25)
[2017-03-30] MEDS: METHOCARBAMOL 750 MG TAB PO PRN ×2 (09:25→16:10)
[2017-03-30] MEDS: FLUoxetine 20 MG CAP PO SCH (09:25)
[2017-03-30] MEDS: FAMOTIDINE 20 MG TAB PO SCH ×2 (09:26→21:24)
[2017-03-30] MEDS: HYDROCHLOROTHIAZIDE 25 MG TAB PO SCH (09:26)
[2017-03-30] MEDS: TOPIRAMATE 100 MG TAB PO SCH ×2 (09:26→21:26)
[2017-03-30] MEDS: LISINOPRIL 10 MG TAB PO SCH (09:26)
[2017-03-30] MEDS: MULTIVITAMINS 1 EACH TAB PO SCH (09:27)
[2017-03-30] MEDS: morphINE SR 15 MG TAB PO SCH ×2 (09:27→21:25)
[2017-03-30] MEDS: SENNOSIDES/DOCUSATE SODIUM TAB PO SCH ×3 (09:28→21:28)
[2017-03-30] MEDS: HYDROCODONE/APAP 10/325 TAB PO PRN ×3 (12:54→19:12)
--- NOTE | 2017-03-30 14:49 | SOAPPROG ---
SOAP Progress Note Assessment/Plan: Assessment/Plan: 66yo F s/p ant exposure for spinal fusion - Tolerating reg diet - Took down dressing, incision c/d/i and covered with steris, has good bowel sounds 03/29/17 11:40 03/30/17 14:49 Subjective: Tolerating diet, having more pain today Objective: Vital Signs Temp Pulse Resp BP Pulse Ox 36.8 C 75 16 110/67 95 03/30/17 11:31 03/30/17 11:31 03/30/17 11:31 03/30/17 11:31 03/30/17 11:31 Laboratory Results 03/29/17 04:41 03/29/17 04:41 03/29/17 03/30/17 03/31/17 05:59 05:59 05:59 Intake Total 4010 1350 Output Total 3800 1350 Balance 210 0 ICD10 Worksheet Patient Problems: Problems Problem Status Onset Spinal instability Acute
[2017-03-30 23:16] VITALS: O2SAT 96
[2017-03-31] MEDS: HYDROCODONE/APAP 10/325 TAB PO PRN ×2 (03:35→10:59)
[2017-03-31] MEDS: LEVOTHYROXINE 75 MCG TAB PO SCH (06:11)
[2017-03-31 07:31] VITALS: BP 118/82; PULSE 58; TEMP 97.9
--- NOTE | 2017-03-31 08:28 | NEUSURGPN ---
Date of Surgery: 03/28/17 Post Op Day: 3 Assessment/Plan: Assessment: 66 yo F POD #3 L5/S1 ALIF and posterior fusion Plan: neuro: stable and doing well overall patient will dc home today PT/OT scd/eulogio/lovenox for DVT prophylaxis x-rays stable please call neurosurgery with any questions/concerns discussed with Dr Felton Subjective: Feeling well, passing gas, new right buttock pain Objective: AxO x3 PERRLA EOMI 5/5 BLE, BUE Sensation intact to light touch BLE Incision abd. CDI with steri strips, posterior dressings CDI Neuro Check Frequency: per routine Urinary Catheter in Place: No - Physician Discussed Patient with : Jose Francisco Neurosurgery Physical Exam - Vitals, I&O, Labs I and O 03/30/17 03/31/17 04/01/17 05:59 05:59 05:59 Intake Total 1350 1900 Output Total 1350 4 Balance 0 1896 Intake: Oral (ml) 1350 1900 Output: Urine (ml) 1350 4 Catheter 1050 Incontinence 300 Toilet 4 Other: Intake Quantity Yes Yes Sufficient Number of Voids Catheter 1 Toilet 1 2 Number of Stools Catheter 1 Incontinence 1 Vital Signs Temp Pulse Resp BP Pulse Ox 36.6 C 58 L 16 118/82 H 96 03/31/17 07:29 03/31/17 07:29 03/31/17 07:29 03/31/17 07:29 03/31/17 07:29 Laboratory Results 03/29/17 04:41 03/29/17 04:41 ICD10 Worksheet Patient Problems: Problems Problem Status Onset Spinal instability Acute
[2017-03-31] MEDS: ENOXAPARIN 40 MG/0.4 ML SYR SC SCH (08:46)
[2017-03-31] MEDS: SENNOSIDES/DOCUSATE SODIUM TAB PO SCH (08:47)
[2017-03-31] MEDS: TOPIRAMATE 100 MG TAB PO SCH (08:47)
[2017-03-31] MEDS: LISINOPRIL 10 MG TAB PO SCH (08:47)
[2017-03-31] MEDS: MULTIVITAMINS 1 EACH TAB PO SCH (08:47)
[2017-03-31] MEDS: HYDROCHLOROTHIAZIDE 25 MG TAB PO SCH (08:48)
[2017-03-31] MEDS: FLUoxetine 20 MG CAP PO SCH (08:48)
[2017-03-31] MEDS: morphINE SR 15 MG TAB PO SCH (08:48)
[2017-03-31] MEDS: FAMOTIDINE 20 MG TAB PO SCH (08:48)
[2017-03-31] MEDS: TAMSULOSIN HCL 0.4 MG CAP PO SCH (08:48)
--- NOTE | 2017-03-31 09:07 | SOAPPROG ---
SOAP Progress Note Assessment/Plan: Assessment/Plan: 66yo F s/p ant exposure for spinal fusion Seen with Dr. Lopez and NS. Abdomen is soft. +passing gas. No BM yet. Consider dose of miralax before d/c. Likely home today. F/u in 2 weeks. 03/31/17 09:03 Objective: Vital Signs Temp Pulse Resp BP Pulse Ox 36.6 C 58 L 16 118/82 H 96 03/31/17 07:29 03/31/17 07:29 03/31/17 07:29 03/31/17 08:48 03/31/17 07:29 Laboratory Results 03/29/17 04:41 03/29/17 04:41 03/30/17 03/31/17 04/01/17 05:59 05:59 05:59 Intake Total 1350 1900 Output Total 1350 4 Balance 0 1896 ICD10 Worksheet Patient Problems: Problems Problem Status Onset Spinal instability Acute
--- NOTE | 2017-03-31 12:20 | ASDISCHSUM ---
Discharge Information Plan Status:Home with No Needs Medically Cleared to Leave: Discharge Date:03/31/2017 12:16 PM CM D/C Disposition:Home, Routine, Self-Care ADT D/C Disposition:Home, Routine, Self-Care Projected Discharge Date:03/31/2017 12:16 PM Transportation at D/C: Discharge Delay Reason: Follow-Up Date:03/31/2017 12:16 PM Discharge Slot: Final Diagnosis: Placement Information Patient Contact Information Contact Name:CHRISTI Relationship: Address:[address] Home Phone: City:[place] Alternate Phone: [facility]/Zip Code:[place] [address] Email: Financial Information Financial Class:[employer] Primary Plan Desc:SHIELA Apolinar [employer] LOC[employer] Primary Plan Number:[id number] Secondary Plan Desc: Secondary Plan Number: Assessment Information [facility] CM Progress Note CM Note CM Note Notes: Pt admitted for tlif and is progressing well. Awaiting PT/OT evals. C/M to follow Date Signed: 03/29/2017 02:53 PM Electronically Signed By:Allison Taylor LCSW [facility] CM Progress Note CM Note CM Note Notes: Therapies clear pt for home. Pt medically stable for d/c, no CM d/c needs identified. Date Signed: 03/31/2017 12:19 PM Electronically Signed By:MARIO Salter Intervention Information
--- NOTE | 2017-04-04 13:17 | PQFORM ---
PHYSICIAN QUERY FORM Needs Your Response This query form is being sent to you to assure this patient record is coded properly. Please respond to the question below: PRODUCT DEMONSTRATOR QUESTION: Dr. Felton, It is documented in the implant record that BMP was used. Was bone graft used on the pedicle screws during the posterior approach? yes no other Thank you, JERSON Torrez HIM coding INSTRUCTIONS FOR RESPONSE: Answer question by clicking on the "Edit Document" button. Move cursor to area below the stars. When complete, hit "Save." Click on the "Sign" button, then click "Sign" again. Type in your PIN and hit "Enter." No MTDD
== END 2017-03-31 12:16 | disposition home or self-care (01) | DRG 460 ==
LOC: F3N 03-28 08:27
PROVIDERS: ADMIT Neurological Surgery; ATTEND Neurological Surgery
PROC: 4A1004G Monitoring of Central Nervous Electrical Activity, Intraoperative, Open Approach (ICD-10-PCS; principal; 2017-03-28 10:30)
PROC: 0SG30A0 Fusion of Lumbosacral Joint with Interbody Fusion Device, Anterior Approach, Anterior Column, Open Approach (ICD-10-PCS; principal; 2017-03-28 10:30)
PROC: 0SB40ZZ Excision of Lumbosacral Disc, Open Approach (ICD-10-PCS; principal; 2017-03-28 10:30)
DX: M47.27 Other spondylosis with radiculopathy, lumbosacral region (principal); I10 Essential (primary) hypertension; J45.909 Unspecified asthma, uncomplicated; E03.9 Hypothyroidism, unspecified; F32.9 Major depressive disorder, single episode, unspecified; K58.9 Irritable bowel syndrome, unspecified
CPT/HCPCS: 97116-GP; 97161-GP; 97165-GO; 97530-GP; 97535-GO; C1713; C1762; J0171; J0690; J1100; J1170; J1650; J2001; J2250; J2405; J2704; J3010; J7060

== ENCOUNTER → 2017-03-27 | Outpatient (CLI) | payer OTHER | LOC: BRMIMAGING 14:34 | PROVIDERS: ATTEND Internal Medicine | DX: Z12.31 Encounter for screening mammogram for malignant neoplasm of breast (principal); Z80.3 Family history of malignant neoplasm of breast | CPT/HCPCS: G0202 ==